=== PATIENT | male | born 1955 | race Asian ===

== ENCOUNTER 2024-09-13 05:53 | Emergency (ER) | payer MEDICARE, SELFPAY ==
[2024-09-13 05:55] VITALS: BMI 24.3
[2024-09-13 06:06] VITALS: BP 160/83; PULSE 83; RESP 19; TEMP 37; O2SAT 96
--- NOTE | 2024-09-13 06:28 | XR_ITS ---
Examination: CT abdomen and pelvis without contrast. Coronal 3-D reconstructions. Sagittal 2-D reconstructions. Date and time of exam:September 13, 2024 0708 hrs. Indications: Bilateral back and flank pain beginning last night CTDI: vol (mGy): 6.33 DLP: (mGycm): 334 Technique: Axial images of the abdomen have been obtained, 3 mm slice thickness Intravenous contrast material has not been administered. Low dose protocols were performed. One or more of the following dose reduction techniques were used; automated exposure control, adjustment of the mA and/or KV according to patient size, use of iterative reconstruction technique. Findings: No focal liver or splenic lesions No gallstones No pancreatic or adrenal mass Left perinephric stranding and minimal left hydronephrosis secondary to 3 mm distal left ureteral calculus Normal appendix No bowel obstruction No bladder mass or bladder calculi Transverse prostate dimension 5.3 cm Impression: Mild left hydronephrosis secondary to 3 mm distal left ureteral calculus
[2024-09-13] MEDS: SODIUM CHLORIDE 0.9% 1000 ML 1,000 ML 999 ML IV (06:41)
[2024-09-13] MEDS: ONDANSETRON INJ 2 MG/ML INJ 2 ML 4 MG IVP ×2 (06:42→12:25)
[2024-09-13 06:47] VITALS: BP 164/101; PULSE 79; RESP 16; TEMP 37; O2SAT 99
[2024-09-13 06:51] VITALS: TEMP 37
[2024-09-13] MEDS: KETOROLAC INJ 30 MG/ML VIAL 15 MG IVP (06:51)
--- NOTE | 2024-09-13 07:01 | EDNOTE_ITS ---
ED General RME/HPI General Chief complaint: Abdominal Pain Stated complaint: LEFT SIDE ABDOMINAL PAIN Time Seen by Provider: 09/13/24 06:19 Arrival date/time: 09/13/24 05:53 Limitations: no limitations RME / HPI RME / HPI narrative: DR. MALDONADO MAIN ED EVALUATION: 69 year old male with past medical history significant for kidney stones 10+ years ago presents to the Emergency Department accompanied by his with complaint of left flank pain onset 4 AM today. Pain is described as aching and rated moderate in severity but now after pain medication it is better. No hematuria, dysuria, fevers, chills, or other symptoms at this time. Denies any surgeries, daily medications, or known allergies. Family history is significant for colon cancer, father. Current smoker, half to a pack a day of c igarettes. No alcohol or substance use. Related Data Allergies Allergy/AdvReac Type Severity Reaction Status Date / Time No Known Allergies Allergy Verified 09/13/24 05:56 Review of Systems Review of Systems Systems Reviewed: All systems reviewed, normal except as documented Past Medical History Past Medical History GENITOURINARY: Positive Kidney Stones Social History SMOKING STATUS: Current every day smoker SUBSTANCE USE: does not use ALCOHOL: Never ED Exam General Limitations: Present no limitations General appearance: Present alert and in no apparent distress Head Head exam: Present atraumatic Eye Eye exam: Present normal appearance, PERRL and EOMI ENT ENT exam: Present normal exam, normal oropharynx and mucous membranes moist Neck Neck exam: Present normal inspection, full ROM and trachea midline Chest Chest inspection: Present normal inspection and symmetric chest wall rise Respiratory Respiratory exam: Present normal lung sounds bilaterally Cardiovascular Cardiovascular exam: Present regular rate, normal rhythm and normal heart sounds Abdominal Exam Abdominal exam: Present tenderness (1+ left flank pain) and normal bowel sounds Extremities Exam Extremities exam: Present normal inspection and full ROM Back Exam Back exam: Present normal inspection and full ROM Neurological Exam Neurological exam: Present alert, oriented X3 and CN II-XII intact Psychiatric Psychiatric exam: Present normal affect and normal mood Skin Skin exam: Present warm, dry, intact and normal color Course Quality Measures none Orders Category Date Time Status Insert IV NOW Care 09/13/24 06:[address] abdomen pelvis wo con Stat Exams 09/13/24 06:28 Completed CBC Stat Lab 09/13/24 06:38 Completed Comprehensive Metabolic Panel Stat Lab 09/13/24 06:38 Completed Lipase Stat Lab 09/13/24 06:38 Completed UA, C/S IF [Urinalysis, C/S if Indicated] Stat Lab 09/13/24 08:02 Completed Ketorolac Inj [Toradol Inj] Med 09/13/24 06:47 Discontinued 15 mg IVP X1 ONE Ketorolac Inj [Toradol Inj] Med 09/13/24 06:29 Discontinued 30 mg IVP X1 ONE Ondansetron Inj [Zofran Inj] Med 09/13/24 06:29 Discontinued 4 mg IVP X1 ONE Sodium Chloride 0.9% 1000 ml [Ns] 1,000 ml Med 09/13/24 06:29 Discontinued IV 999 mls/hr Vital Signs Vital signs: Vital Signs Temperature 98.6 F 09/13/24 06:06 Pulse Rate 83 09/13/24 06:06 Respiratory Rate 19 09/13/24 06:06 Blood Pressure 160/83 H 09/13/24 06:06 Pulse Oximetry (%) 96 09/13/24 06:06 Oxygen Delivery Method Room Air 09/13/24 06:06 Procedures -ED Smoking Cessation Time Spent Discussing Smoking Cessation w/Patient (min): 3 Patient Acknowledges Need for Cessation: Yes Additional Comments: The patient was counseled as to the multiple risks to their health from continued use of tobacco products. It was explained that continuing to smoke may lead to multiple short and senior living negative health consequences, including but not limited to mouth/esophageal/lung cancer, COPD, and heart disease. The patient states they understand these risks, and also understand the options and resources available to them to help them stop smoking. Nicotine replacement therapy, local hotlines, and local resources were discussed as viable options for helping them stop their tobacco use. The total time spent counseling the patient regarding tobacco cessation was 3 minutes. Discharge Plan Plan Patient Disposition: HOME (Self Care) Patient condition on transfer: Stable Patient/Caregiver Discharge Instructions Print Language: Turkish MDM Narrative MDM hospital course: I, Georgiana Clarke am scribing for and in the presence of Dr. Maldonado. Abdomen/pelvis CT shows 3 mm distal left ureteral calculus. Will discharge with pain medications and nausea medication. Clinical Information Provided by patient and spouse Medical Records Reviewed None Meds/Rx Considered, not Ordered None Labs/Rad/Tests considered, not Ordered None Chronic Illness/Social Conditions Add or document further as needed: Kidney stones 10+ years ago. Denies any surgeries, daily medications, or known allergies. Family history is significant for colon cancer, father. Current smoker, half to a pack a day of cigarettes. No alcohol or substance use. Lab Interpretation Labs: interpreted by me Imaging Imaging interpretation: see narrative above Radiology reports / interpretation(s): Procedure(s): CT abdomen pelvis wo con Accession Number(s): [id number] cc: Remi (TERI),Kade WILLIAMSON; Carol Lock MD; Jose Brizuela MD~ Examination: CT abdomen and pelvis without contrast. Coronal 3-D reconstructions. Sagittal 2-D reconstructions. Date and time of exam:September 13, 2024 0708 hrs. Indications: Bilateral back and flank pain beginning last night CTDI: vol (mGy): 6.33 DLP: (mGycm): 334 Technique: Axial images of the abdomen have been obtained, 3 mm slice thickness Intravenous contrast material has not been administered. Low dose protocols were performed. One or more of the following dose reduction techniques were used; automated exposure control, adjustment of the mA and/or KV according to patient size, use of iterative reconstruction technique. Findings: No focal liver or splenic lesions No gallstones No pancreatic or adrenal mass Left perinephric stranding and minimal left hydronephrosis secondary to 3 mm distal left ureteral calculus Normal appendix No bowel obstruction No bladder mass or bladder calculi Transverse prostate dimension 5.3 cm Impression: Mild left hydronephrosis secondary to 3 mm distal left ureteral calculus Dictated By: Jose Brizuela MD Medication Administration(s) Medication Administration History Discontinued Medications Sodium Chloride (Ns) 1,000 mls @ 999 mls/hr IV .Q1H1M ONE Stop: 09/13/24 07:29 Last Infusion: 09/13/24 07:42 Dose: Infused Documented By: Admin: 09/13/24 06:41 Dose: 999 mls/hr Documented By: JULIEN Ketorolac Tromethamine (Ketorolac Inj 30 Mg/Ml Vial) 30 mg IVP X1 ONE Stop: 09/13/24 06:30 Last Admin: 09/13/24 06:49 Dose: Not Given Documented By: JULIEN Non-Admin Reason: Cancelled by Provider Ketorolac Tromethamine (Ketorolac Inj 30 Mg/Ml Vial) 15 mg IVP X1 ONE Stop: 09/13/24 06:48 Last Admin: 09/13/24 06:51 Dose: 15 mg Documented By: ANDREAS Ondansetron HCl (Ondansetron Inj 2 Mg/Ml Inj 2 Ml) 4 mg IVP X1 ONE; Protocol Stop: 09/13/24 06:30 Last Admin: 09/13/24 06:42 Dose: 4 mg Documented By: AC Diagnosis Differential diagnosis: kidney stones, pyelonephritis, UTI Most likely dx, and/or detailed dx discussion: 3 mm distal left ureteral calculus Dispositon Disposition: Discharge Home
[2024-09-13 07:33] LABS: Basophils # (Auto) 0.1 Thou/mm3 (0.0-0.2); Basophils % (Auto) 0 % (0-2.5); Eosinophils # (Auto) 0.8 Thou/mm3 (0.0-0.5); Eosinophils % (Auto) 5 % (0-10); Hematocrit 41.7 % (41.0-53.0); Hemoglobin 14.2 g/dL (13.5-16.0); Immature Granulocytes % (Auto) 0 % (0-0); Immature Granulocytes Auto 0.05 Thou/mm3 (0.00-0.00); Lymphocytes # (Auto) 1.7 Thou/mm3 (1.0-4.8); Lymphocytes % (Auto) 12 % (10-50); Mean Corpuscular HGB Conc 34.1 g/dl (31.0-37.0); Mean Corpuscular Volume 85 fL (80-100); Monocytes # (Auto) 0.8 Thou/mm3 (0.0-0.8); Monocytes % (Auto) 5 % (0-12); Neutrophils # (Auto) 10.6 Thou/mm3 (1.8-7.7); Neutrophils % (Auto) 76 % (37-80); Nucleated Red Blood Cell % 0 /100 WBC (0); Platelet Count 221 Thou/mm3 (140-440); RDW Standard Deviation 42.6 fL (35.1-43.9); White Blood Count 13.9 Thou/mm3 (3.8-10.6)
[2024-09-13 07:41] VITALS: BP 131/82; PULSE 87; RESP 16; TEMP 36.7; O2SAT 95
[2024-09-13 07:45] LABS: Alanine Aminotransferase 15 U/L (10-49); Albumin, Serum 4.5 gm/dL (3.4-4.8); Albumin/Globulin Ratio 1.5 (1.2-2.2); Alkaline Phosphatase 61 U/L (46-116); Anion Gap 10 (7-16); Aspartate Amino Transferase 18 U/L (0-34); BUN/Creatinine Ratio 18 Ratio (12-20); Bilirubin,Total 0.3 mg/dL (0.3-1.2); Blood Urea Nitrogen 21 mg/dL (9-23); Chloride 103 mMol/L (98-107); Creatinine (Component) 1.2 mg/dL (0.6-1.3); Estimated Creatinine Clearance 55.4 mL/min (>60); Glucose 109 mg/dL (74-106); Lipase 40 U/L (12-53); Osmolality,Calculated 279 (275-295); Potassium 4.4 mMol/L (3.4-5.1); Sodium 138 mMol/L (136-145); Total Protein 7.5 gm/dL (5.7-8.2); eGFR > 60 See Note
--- NOTE | 2024-09-13 08:02 | PC.NURSE ---
PT RESTING ON STRETCHER, EVEN RISE AND FALL OF CHEST. REPORTS PAIN MEDICATION HELPED. PT UPDATED THAT WE ARE WAITING ON RESULTS, AND IN AGREEMENT W/POC. AT BEDSIDE ATTENTIVE TO PT.
[2024-09-13 08:13] LABS: Collection Type, Urine Clean Catch; Squamous Epithelial Cell,Urine 0 /hpf (0-5)
[2024-09-13 08:47] LABS: Bilirubin,Urine Negative (Negative); Blood,Urine 3+ (Negative); Color,Urine Yellow (Lt Yel-Yel); Culture Indicated,Urine Not Indicated; Glucose, Urine Negative (Negative); Ketones,Urine Negative (Negative); Leukocyte Esterase,Urine Negative (Negative); Nitrite,Urine Negative (Negative); Protein,Urine Trace (Neg - Trace); RBC,Urine 435 /hpf (0-3); Specific Gravity,Urine 1.018 (1.001-1.035); Urobilinogen,Urine Negative mg/dL (0.0-1.0); WBC,Urine 1 /hpf (0-5)
[2024-09-13 08:49] LABS: Clarity,Urine Hazy (Clear/Hazy)
[2024-09-13 11:37] VITALS: BP 113/70; PULSE 71; RESP 18; TEMP 36.5; O2SAT 96
[2024-09-13] MEDS: MORPHINE SULF INJ 10 MG/ML VIAL 2 MG IVP (12:23)
== END 2024-09-13 12:39 | disposition home or self-care (01) ==
PROVIDERS: Nurse Practitioner Primary Care; Emergency Provider Emergency Medicine; PCP Internal Medicine
DX: N13.2 Hydronephrosis with renal and ureteral calculous obstruction (principal)
CPT/HCPCS: 36415; 74176; 80053; 81001; 83690; 85025; 96374; 96375; 96376; 99284; J1885; J2270; J2405; J7030